=== PATIENT | male | born 1940 | race Caucasian/White ===

== ENCOUNTER 2020-09-01 18:56 | Inpatient (IN) | payer MEDICARE, BC ==
[~2020-09-01] VITALS: Ht 170.2 cm; Wt 78.0 kg
[2020-09-01] MEDS ORDERED: IV NS 0.9% 1,000 ML BAG IV ONE (19:00)
[2020-09-01] MEDS ORDERED: ONDANSETRON HCL/PF 4 MG/2 ML VIAL IVP ONE (19:00)
[2020-09-01] MEDS ORDERED: ONDANSETRON HCL/PF 4 MG/2 ML VIAL ONE (19:26)
[2020-09-01 19:43] LABS: BASOPHILS # (AUTO) 0.1 /CMM (0.0-0.2); BASOPHILS % (AUTO) 0.7 % (0.0-2.0); EOSINOPHILS % (AUTO) 0.6 % (0.0-6.0); HEMATOCRIT 42 % (39-51); HEMOGLOBIN 13.8 g/dL (13.5-17.5); LYMPHOCYTES # (AUTO) 0.2 /CMM (0.8-4.8); LYMPHOCYTES % (AUTO) 1.2 % (20.0-44.0); MEAN CORPUSCULAR HGB CONC 33 g/dl (31.0-36.0); MEAN CORPUSCULAR VOLUME 91 fL (80-96); MONOCYTES # (AUTO) 0.9 /CMM (0.1-1.30); MONOCYTES % (AUTO) 4.9 % (2.0-12.0); NEUTROPHILS % (AUTO) 92.6 % (43.0-81.0); PLATELET COUNT (AUTO) 247 /CMM (150-450); RED BLOOD CELL COUNT(AUTO) 4.65 MIL/uL (4.5-6.0); WHITE BLOOD COUNT (AUTO) 17.3 K/uL (4.3-11.0)
--- NOTE | 2020-09-01 19:50 | NUR ---
BIB RA FROM HOME C/O WEAKNESS, NAUSEA AND VOMITING STARTED 5 HOURS [employer] WORK[employer] AP[employer]ICE. ORDERS RECEIVED AND CARRIED OUT. LINE STARTED AND MED GIVEN TO ER BED 3
[2020-09-01 20:08] LABS: ALANINE AMINOTRANSFERASE 26 U/L (12-78); ALBUMIN 4.5 g/dL (3.4-5.0); ALKALINE PHOSPHATASE 107 U/L (46-116); ASPARTATE AMINOTRANSFERASE 55 U/L (15-37); BILIRUBIN,DIRECT 0.1 mg/dL (0.0-0.2); BILIRUBIN,TOTAL 0.5 mg/dL (0.2-1.0); CALCIUM, SERUM 10.4 mg/dL (8.5-10.1); CARBON DIOXIDE 17 mmol/L (21-32); CHLORIDE 102 mmol/L (98-107); GLUCOSE 146 mg/dL (74-106); SODIUM SERUM 137 mmol/L (136-145); TOTAL PROTEIN, SERUM 8.4 g/dL (6.4-8.2); UREA NITROGEN, BLOOD 47 mg/dL (7-18)
[2020-09-01 20:13] LABS: POTASSIUM 6.5 mmol/L (3.5-5.1)
[2020-09-01] MEDS ORDERED: PIPERACILLIN /TAZOBACTAM 3.375 G in IV D5W 50 ML IV ONE (20:30)
[2020-09-01] MEDS ORDERED: CALCIUM CHLORIDE 1,000 MG/10 ML DISP.SYRIN IV ONE (20:30)
[2020-09-01] MEDS ORDERED: DEXTROSE 50%-WATER 50 ML DISP.SYRIN IV ONE (20:30)
[2020-09-01] MEDS ORDERED: INSULIN REGULAR, HUMAN 100 UNIT/ML 10 ML VIAL IV ONE (20:30)
[2020-09-01] MEDS ORDERED: SODIUM BICARBONATE SYR 50 MEQ/50 ML DISP.SYRIN IV ONE (20:30)
[2020-09-01] MEDS ORDERED: PIPERACILLIN /TAZOBACTAM 3.375 G VIAL IV ONE (20:31)
[2020-09-01] MEDS ORDERED: CALCIUM CHLORIDE 1,000 MG/10 ML DISP.SYRIN ONE (20:37)
[2020-09-01] MEDS ORDERED: DEXTROSE 50%-WATER 50 ML DISP.SYRIN ONE (20:37)
[2020-09-01] MEDS ORDERED: SODIUM BICARBONATE SYR 50 MEQ/50 ML DISP.SYRIN ONE (20:37)
[2020-09-01] MEDS ORDERED: INSULIN REGULAR, HUMAN 100 UNIT/ML 10 ML VIAL ONE (20:38)
--- NOTE | 2020-09-01 20:56 | NUR ---
URINE COLLECTED AND SENT TO LAB
[2020-09-01] MEDS ORDERED: NS 0.9% IV ONE (21:00)
[2020-09-01 21:14] LABS: BILIRUBIN,URINE SMALL (NEGATIVE); COLOR,URINE YELLOW (YELLOW); LEUKOCYTE ESTERASE ,URINE Negative (NEGATIVE); NITRITE, URINE Negative (NEGATIVE); PH,URINE 5.5 (5.0-8.0); PROTEIN,URINE 30 mg/dl (NEGATIVE); UGLUCOSE Negative (NEGATIVE); UROBILINOGEN,URINE 0.2 EU/dL (0.2)
[2020-09-01] MEDS ORDERED: MORPHINE SULFATE INJ 4 MG/ML DISP.SYRIN ONE (21:25)
[2020-09-01 21:30] LABS: BACTERIA,URINE Moderate /HPF (None Seen); RBC,URINE 21-50 /HPF (0-2); SQUAMOUS EPITHELIAL CELL,UR Few /HPF (None Seen)
[2020-09-01] MEDS ORDERED: MORPHINE SULFATE INJ 2 MG/ML DISP.SYRIN IV ONE (21:30)
--- NOTE | 2020-09-01 22:40 | NUR ---
pt cleaned up, resting in bed comfortably
--- NOTE | 2020-09-01 22:52 | NUR ---
Call from lab. Rapid covid negative.
[2020-09-01] MEDS ORDERED: MORPHINE SULFATE INJ 2 MG/ML DISP.SYRIN IV PRN (23:00)
[2020-09-01] MEDS ORDERED: TEMAZEPAM 15 MG CAPSULE PO PRN (23:00)
[2020-09-01] MEDS ORDERED: Z GUARD REMEDY 2 OZ OINT TP PRN (23:00)
[2020-09-01] MEDS ORDERED: MAG HYDROX/AL HYDROX/SIMETH 30 ML UDC PO PRN (23:00)
[2020-09-01] MEDS: CEFTRIAXONE 1 G in IV D5W 50 ML IV SCH (23:00)
[2020-09-01] MEDS ORDERED: MAGNESIUM HYDROXIDE 30 ML UDC PO PRN (23:00)
[2020-09-01] MEDS ORDERED: ACETAMINOPHEN 325 MG TABLET PO PRN (23:00)
[2020-09-02] MEDS ORDERED: METRONIDAZOLE 500MG/ NS 100ML 100 ML IV ONE ×2 (00:02→05:57)
[2020-09-02] MEDS ORDERED: CEFTRIAXONE 1GM BAG (ER ONLY) 50 ML IV ONE (00:03)
[2020-09-02] MEDS: METRONIDAZOLE 500MG/ NS 100ML 500 MG in PREMIX 1 EA IV SCH ×4 (00:20→21:20)
--- NOTE | 2020-09-02 03:25 | NUR ---
pt remains in bed resting comfortable vss, no complain of pain or discomfort at the moment
[2020-09-02 05:25] LABS: BASOPHILS % (AUTO) 0.2 % (0.0-2.0); EOSINOPHILS % (AUTO) 0.1 % (0.0-6.0); HEMATOCRIT 31 % (39-51); HEMOGLOBIN 10.4 g/dL (13.5-17.5); LYMPHOCYTES # (AUTO) 0.3 /CMM (0.8-4.8); LYMPHOCYTES % (AUTO) 2.2 % (20.0-44.0); MEAN CORPUSCULAR HGB CONC 33 g/dl (31.0-36.0); MEAN CORPUSCULAR VOLUME 90 fL (80-96); MONOCYTES # (AUTO) 0.9 /CMM (0.1-1.30); MONOCYTES % (AUTO) 6.7 % (2.0-12.0); NEUTROPHILS # (AUTO) 12.5 /CMM (1.8-8.9); NEUTROPHILS % (AUTO) 90.8 % (43.0-81.0); PLATELET COUNT (AUTO) 194 /CMM (150-450); RED BLOOD CELL COUNT(AUTO) 3.48 MIL/uL (4.5-6.0); WHITE BLOOD COUNT (AUTO) 13.7 K/uL (4.3-11.0)
[2020-09-02 05:41] LABS: CALCIUM, SERUM 8.8 mg/dL (8.5-10.1); CARBON DIOXIDE 24 mmol/L (21-32); CHLORIDE 110 mmol/L (98-107); CREATININE 2.1 mg/dL (0.6-1.3); GLUCOSE 112 mg/dL (74-106); LIPASE 302 U/L (73-393); PHOSPHORUS 3.7 mg/dL (2.5-4.9); POTASSIUM 5.5 mmol/L (3.5-5.1); SODIUM SERUM 142 mmol/L (136-145); UREA NITROGEN, BLOOD 38 mg/dL (7-18)
--- NOTE | 2020-09-02 05:48 | NUR ---
MAG 1.2
[2020-09-02 05:49] LABS: MAGNESIUM 1.2 mg/dL (1.8-2.4)
[2020-09-02 05:55] LABS: CHOLESTEROL 123 mg/dL (<200); HDL CHOLESTEROL 51 mg/dL (40-60); LDL 60 mg/dL (0-99); THYROID STIMULATING HORMONE 1.164 uIU/mL (0.358-3.74); TRIGLYCERIDES 75 mg/dL (30-150)
--- NOTE | 2020-09-02 06:15 | NUR ---
PER ANT DNP 2G MAGNESIUM IV ORDERED.
[2020-09-02] MEDS ORDERED: Magnesium 1GM/D5W 100ML PREMIX PIGGYBACK IV SCH (06:30)
[2020-09-02] MEDS ORDERED: Magnesium 1GM/D5W 100ML PREMIX 200 ML IV ONE ×2 (06:49→08:00)
[2020-09-02] MEDS: Magnesium 1GM/D5W 100ML PREMIX 100 ML IV SCH ×2 (07:03→08:00)
--- NOTE | 2020-09-02 07:07 | NUR ---
RECEIVED REPORT FROM PATSY FARR. PT IS ASLEEP ON BED EASILY AROUSABLE, NOT IN RESPIRATORY DISTRESS, VS STABLE, KEPT RESTED AND COMFORTABLE. AWAITING ROOM FOR TRANSFER.
[2020-09-02] MEDS ORDERED: ONDANSETRON HCL/PF 4 MG/2 ML VIAL ONE ×2 (07:22→16:53)
[2020-09-02] MEDS: ONDANSETRON HCL/PF 4 MG/2 ML VIAL IVP PRN ×2 (07:28→16:55)
[2020-09-02] MEDS ORDERED: PANTOPRAZOLE 40 MG TABLET.DR PO ONE ×2 (07:39→08:01)
[2020-09-02] MEDS: HYDROCODONE/APAP 5/325MG TABLET PO PRN ×3 (08:00→23:22)
[2020-09-02] MEDS ORDERED: HEPARIN SODIUM, PORCINE 5000 UNITS/1 ML VIAL ONE ×2 (08:00→21:19)
[2020-09-02] MEDS ORDERED: HYDROCODONE/APAP 5/325MG TABLET ONE ×3 (08:00→23:18)
[2020-09-02] MEDS: PANTOPRAZOLE 40 MG TABLET.DR PO SCH (08:07)
[2020-09-02] MEDS: HEPARIN SODIUM, PORCINE 5000 UNITS/1 ML VIAL SQ SCH ×2 (08:11→21:25)
[2020-09-02] MEDS: IV NS 0.9% 1,000 ML IV PRN (09:00)
[2020-09-02] MEDS ORDERED: TAMS-12 PO (09:59)
[2020-09-02] MEDS ORDERED: LACT1CAP71 PO (09:59)
[2020-09-02] MEDS ORDERED: OMEP20CA15 PO (09:59)
[2020-09-02] MEDS ORDERED: PRED1TAB PO (09:59)
[2020-09-02] MEDS ORDERED: ESCI10TA PO (09:59)
[2020-09-02] MEDS ORDERED: OXYC1TAB12 PO (09:59)
[2020-09-02] MEDS ORDERED: CALC-1143 PO (09:59)
[2020-09-02] MEDS ORDERED: ACET-2605 PO (09:59)
[2020-09-02] MEDS ORDERED: BENA20TA9 PO (09:59)
[2020-09-02] MEDS ORDERED: OLOP2.5D12 EACHEYE (09:59)
[2020-09-02] MEDS ORDERED: SIME180C47 PO (09:59)
[2020-09-02] MEDS ORDERED: MULT-1168 PO (09:59)
[2020-09-02] MEDS ORDERED: METH20TA9 PO (09:59)
[2020-09-02] MEDS ORDERED: ZOLP10TA2 PO (09:59)
[2020-09-02] MEDS ORDERED: CHOL100040 PO (09:59)
[2020-09-02] MEDS ORDERED: LORA-259 PO (09:59)
[2020-09-02] MEDS ORDERED: DULO60CA64 PO (09:59)
--- NOTE | 2020-09-02 10:00 | NUR ---
x1 bm noted watery stool. pt was cleaned. adl care provided. kept clean and dry and comfortable.
--- NOTE | 2020-09-02 10:15 | NUR ---
Fernando called. updates provided regarding pts current condition.
--- NOTE | 2020-09-02 10:16 | NUR ---
charmaine gave pts GI doctor: Dr. Albino Lawson (funeral attendant) [phone]
--- NOTE | 2020-09-02 12:50 | NUR ---
x1 bm noted again watery stool. pt was cleaned. adl care provided. kept clean and dry and comfortable.
--- NOTE | 2020-09-02 19:43 | NUR ---
PT RESTING COMFORTABLY, PROVIDED WITH MORE BLANKETS.
[2020-09-02] MEDS ORDERED: ACETAMINOPHEN 325 MG TABLET ONE (23:14)
--- NOTE | 2020-09-02 23:15 | NUR ---
PT C/O BODY PAIN AND HEADACHE.
[2020-09-02] MEDS: CEFTRIAXONE 1 G in IV D5W 50 ML IV SCH (23:17)
--- NOTE | 2020-09-03 04:06 | NUR ---
PT ASLEEP, VSS.
[2020-09-03 04:42] LABS: BASOPHILS % (AUTO) 0.2 % (0.0-2.0); EOSINOPHILS % (AUTO) 0.5 % (0.0-6.0); HEMATOCRIT 33 % (39-51); HEMOGLOBIN 10.9 g/dL (13.5-17.5); LYMPHOCYTES % (AUTO) 9.1 % (20.0-44.0); MEAN CORPUSCULAR HGB CONC 33 g/dl (31.0-36.0); MEAN CORPUSCULAR VOLUME 90 fL (80-96); MONOCYTES # (AUTO) 0.8 /CMM (0.1-1.30); MONOCYTES % (AUTO) 6.9 % (2.0-12.0); NEUTROPHILS # (AUTO) 9.3 /CMM (1.8-8.9); NEUTROPHILS % (AUTO) 83.3 % (43.0-81.0); PLATELET COUNT (AUTO) 209 /CMM (150-450); RED BLOOD CELL COUNT(AUTO) 3.66 MIL/uL (4.5-6.0); WHITE BLOOD COUNT (AUTO) 11.2 K/uL (4.3-11.0)
[2020-09-03 04:47] LABS: CALCIUM, SERUM 9.3 mg/dL (8.5-10.1); CARBON DIOXIDE 23 mmol/L (21-32); CHLORIDE 109 mmol/L (98-107); CREATININE 1.9 mg/dL (0.6-1.3); GLUCOSE 86 mg/dL (74-106); MAGNESIUM 1.9 mg/dL (1.8-2.4); PHOSPHORUS 3.6 mg/dL (2.5-4.9); POTASSIUM 5.2 mmol/L (3.5-5.1); SODIUM SERUM 141 mmol/L (136-145); UREA NITROGEN, BLOOD 32 mg/dL (7-18)
[2020-09-03 04:53] LABS: IRON, SERUM 59 ug/dl (50-175); TOTAL IRON BINDING CAPACITY 264 ug/dl (250-450)
[2020-09-03] MEDS ORDERED: METRONIDAZOLE 500MG/ NS 100ML 100 ML IV ONE (05:11)
[2020-09-03 05:12] LABS: PROSTATE SPECIFIC ANTIGEN SCR 2.24 ng/mL (0.00-4.00)
[2020-09-03 05:15] LABS: FERRITIN 66 ng/mL (8-388); THYROID STIMULATING HORMONE 2.311 uIU/mL (0.358-3.74)
[2020-09-03] MEDS: METRONIDAZOLE 500MG/ NS 100ML 500 MG in PREMIX 1 EA IV SCH ×2 (05:15→13:00)
--- NOTE | 2020-09-03 05:24 | NUR ---
PT PROVIDED WITH MORE BLANKETS, VSS.
[2020-09-03] MEDS: IV NS 0.9% 1,000 ML IV PRN (07:41)
[2020-09-03] MEDS ORDERED: ACETAMINOPHEN ES 500 MG TABLET ONE (07:52)
[2020-09-03] MEDS ORDERED: HYDROCODONE/APAP 5/325MG TABLET ONE (07:52)
[2020-09-03] MEDS ORDERED: PANTOPRAZOLE 40 MG TABLET.DR PO ONE (07:53)
[2020-09-03] MEDS: HYDROCODONE/APAP 5/325MG TABLET PO PRN (07:54)
[2020-09-03] MEDS: PANTOPRAZOLE 40 MG TABLET.DR PO SCH (08:30)
[2020-09-03] MEDS: HEPARIN SODIUM, PORCINE 5000 UNITS/1 ML VIAL SQ SCH (09:07)
[2020-09-03] MEDS ORDERED: ONDANSETRON HCL/PF 4 MG/2 ML VIAL ONE (09:11)
--- NOTE | 2020-09-03 12:01 | NUR ---
per dr joseluis [facility] pcr covid test
--- NOTE | 2020-09-03 14:00 | NUR ---
pt was cleaned adl care provided.
--- NOTE | 2020-09-03 14:26 | NUR ---
PT PICKED UP BY IN STABLE CONDITION
[2020-09-03 14:27] VITALS: BP 132/88
[2020-09-04 08:22] LABS: IMMUNOGLOBULIN A, SERUM 121 mg/dL (61-437); IMMUNOGLOBULIN G, SERUM 747 mg/dL (603-1613); IMMUNOGLOBULIN M, SERUM 25 mg/dL (15-143)
[2020-09-04 15:08] LABS: *SPE A/G RATIO 1.1 (0.7-1.7); *SPE ALBUMIN 3.1 g/dL (2.9-4.4); *SPE ALPHA-1-GLOBULIN 0.3 g/dL (0.0-0.4); *SPE ALPHA-2-GLOBULIN 0.8 g/dL (0.4-1.0); *SPE BETA GLOBULIN 0.9 g/dL (0.7-1.3); *SPE GLOBULIN, TOTAL 2.8 g/dL (2.2-3.9); *SPE M-SPIKE Not Observed g/dL (Not Observed); *SPEGAMMA GLOBULIN 0.8 g/dL (0.4-1.8)
== END 2020-09-03 14:28 | disposition home or self-care (01) | DRG 871 ==
LOC: ER 18:58 → OBSVTOIN 22:43 → OBSER 22:43 → TRANSITION 22:44
PROVIDERS: ADMIT Nurse Practitioner Acute Care
DX: A41.9 Sepsis, unspecified organism (principal); N17.0 Acute kidney failure with tubular necrosis; K85.90 Acute pancreatitis without necrosis or infection, unspecified; N18.4 Chronic kidney disease, stage 4 (severe); E87.2 Acidosis; A09 Infectious gastroenteritis and colitis, unspecified; E86.0 Dehydration; I12.9 Hypertensive chronic kidney disease with stage 1 through stage 4 chronic kidney disease, or unspecified chronic kidney disease; E87.5 Hyperkalemia; K44.9 Diaphragmatic hernia without obstruction or gangrene; N32.9 Bladder disorder, unspecified; F39 Unspecified mood [affective] disorder; F12.90 Cannabis use, unspecified, uncomplicated; K57.30 Diverticulosis of large intestine without perforation or abscess without bleeding; N20.0 Calculus of kidney; D64.9 Anemia, unspecified; A08.4 Viral intestinal infection, unspecified
CPT/HCPCS: 36415; 71045-TC; 71250-TC; 76705-TC; 76770-TC; 80048-TC; 80061-TC; 80076-TC; 81001; 82728-TC; 82784; 83540-TC; 83605-TC; 83690-TC; 83735-TC; 84100-TC; 84153-TC; 84154-TC; 84155; 84165; 84443-TC; 84484-TC; 85025-TC; 85730-TC; 86334; 87040-TC; 87081-TC; 87086-TC; 97112-TC; 97116-TC; 97530-TC; A4216; G0378; J0696; J1644; J1815; J2270; J2405; J2543; J3475; J3490; J7030; J7040; J7060